=== PATIENT | male | born 1935 | race Caucasian/White ===

== ENCOUNTER 2021-02-23 23:30 | Emergency (ER) | payer MEDICARE, OTHER ==
[2021-02-23] MEDS ORDERED: Coumadin5 MG PO (23:48)
[2021-02-24] MEDS ORDERED: METOPROLOL SUCC50 M2 PO (00:03)
[2021-02-24] MEDS ORDERED: COZAAR100 MG PO (00:03)
[2021-02-24] MEDS ORDERED: LIPITOR40 MG PO (00:04)
[2021-02-24] MEDS ORDERED: HYDROCHLOROTH12.5 M2 PO (00:04)
[2021-02-24] MEDS ORDERED: METHOTREXATE2.5 MG PO (00:05)
[2021-02-24] MEDS ORDERED: NATURE'S BLEND F1 MG PO (00:05)
[2021-02-24] MEDS ORDERED: METFORMIN HCL500 M2 PO (00:05)
[2021-02-24] MEDS ORDERED: Coumadin2.5 MG PO (00:06)
[2021-02-24 00:17] LABS: HEMATOCRIT 42.8 % (42.0-52.0); MEAN CELL VOLUME 94.5 fl (80.0-94.0); MEAN CORPUSCULAR HGB 30.5 pg (27.0-31.0); MEAN CORPUSCULAR HGB CONC 32.2 g/dl (33.0-37.0); MEAN PLATELET VOLUME 10.4 fl (9.6-12.3); PLATELET COUNT AUTOMATED 196 10*3/uL (130-400); RED BLOOD COUNT 4.53 10*6/uL (4.50-5.90); RED CELL DISTRI WIDTH 13.8 % (0-14.5); WHITE BLOOD COUNT 27.5 10*3/uL (4.8-10.8)
[2021-02-24 00:31] LABS: ALBUMIN 3.6 gm/dl (3.1-4.5); ALKALINE PHOSPHATASE 59 U/L (45-117); BUN 18 mg/dl (7-24); CHLORIDE 103 mmol/L (98-107); CREATININE 1.36 mg/dL (0.70-1.30); LIPASE 75 U/L (73-393); POTASSIUM 3.9 mmol/L (3.5-5.1); SGOT/AST 33 IU/L (3-35); SGPT/ALT 36 U/L (12-78); SODIUM 131 mmol/L (136-145); TOTAL PROTEIN 7.4 gm/dL (6.4-8.2)
[2021-02-24 00:33] LABS: TOTAL CELLS COUNTED 100 #CELLS
[2021-02-24 00:34] LABS: PLATELET SUFFICIENCY NORMAL (NORMAL)
[2021-02-24 01:13] LABS: BILIRUBIN Negative (Negative); BLOOD Trace-Intact (Negative); CLARITY Clear (Clear); COLOR Yellow (Yellow); GLUCOSE Negative (Negative); KETONE Negative (Negative); LEUKO ESTERASE 3+ (Negative); NITRITE Negative (Negative); PH 5.5 (4.5-8.0)
[2021-02-24 01:28] LABS: BACTERIA 1+; WBC 21-30 wbc/hpf (0-5)
[2021-02-24] MEDS ORDERED: CIPRO500 MG PO (01:43)
== END 2021-02-24 02:06 | disposition home or self-care (01) ==
LOC: ED 23:30
PROVIDERS: Internal Medicine
DX: N39.0 Urinary tract infection, site not specified (principal); Z20.822 Contact with and (suspected) exposure to COVID-19; E87.1 Hypo-osmolality and hyponatremia; D72.829 Elevated white blood cell count, unspecified; N18.31 Chronic kidney disease, stage 3a; Z79.01 Long term (current) use of anticoagulants; Z79.899 Other long term (current) drug therapy